=== PATIENT | male | born 1965 | race Caucasian/White ===

== ENCOUNTER 2016-10-11 00:46 | Emergency (ER) | payer OTHER ==
[~2016-10-11] VITALS: Ht 167.6 cm; Wt 72.1 kg
[~2016-10-11 00:46] MED LIST: Amoxicillin PO; CLONIDINE HCL0.1 MG PO; FLEXERIL10 MG PO; FOLVITE1 MG PO; HYDROCHLOROTHIA25 MG PO; IBUPROFEN800 MG PO; KEFLEX500 MG PO; KLONOPIN0.5 M1 NG; KLONOPIN0.5 M1 PO; LABETALOL HCL300 MG PO; LIDODERM 5% P1 PATCH TD; LORTAB 5-325 M1 EACH PO; MOTRIN IB200 MG PO; NOHOMEMEDS; NORCO 10/3251 TABLET PO; NORMODYNE,TRAN200 MG PO; NORVASC5 MG PO; OMEPRAZOLE40 M1 PO; OXYCODONE HCL10 MG PO; OxyCODONE PO; PERCOCET 5/31 TABLET PO; PREDNISONE10 M1 PO; PRILOSEC20 MG PO; Prilosec PO; QUETIAPINE FUM100 MG PO; QUETIAPINE FUMA25 MG PO; REQUIP0.5 MG PO; REQUIP1 MG PO; ROPINIROLE HCL0.5 MG PO; ROXICODONE5 MG PO; SEROQUEL100 MG PO; SEROQUEL12.5 MG PO; SEROQUEL50 MG PO; SERTRALINE HCL100 MG PO; SKELAXIN800 MG PO; TYLENOL EXTRA500 MG PO; XANAX2 MG PO; ZANAFLEX2 M1 PO; ZANAFLEX4 MG PO; ZESTRIL,PRINIV2.5 MG PO; ZOLOFT100 M1 PO; ZOLOFT100 MG PO; Zestril,Prinivil PO
[2016-10-11] MEDS ORDERED: PERCOCET 5/31 TABLET PO (02:19)
[2016-10-11 02:43] VITALS: BP 161/95
== END 2016-10-11 02:48 | disposition home or self-care (01) ==
LOC: RME 00:46 → EME 00:46 → RME 02:48
DX: S20.212A Contusion of left front wall of thorax, initial encounter (principal); Z88.6 Allergy status to analgesic agent; W17.89XA Other fall from one level to another, initial encounter
CPT/HCPCS: 71020; 73030; 99281; 99285

== ENCOUNTER 2016-10-15 13:41 | Emergency (ER) | payer OTHER ==
[~2016-10-15] VITALS: Ht 167.6 cm; Wt 70.4 kg
[2016-10-15 14:15] VITALS: BP 148/102
== END 2016-10-15 16:00 | disposition home or self-care (01) ==
LOC: EME 13:41
DX: S20.212A Contusion of left front wall of thorax, initial encounter (principal); W17.89XA Other fall from one level to another, initial encounter; Y92.812 Truck as the place of occurrence of the external cause; Z88.4 Allergy status to anesthetic agent; Z88.8 Allergy status to other drugs, medicaments and biological substances
CPT/HCPCS: 71100; 99281; 99284